=== PATIENT | female | born 1960 | race Caucasian/White ===

== ENCOUNTER 2022-09-13 02:42 | Emergency (ER) | payer OTHER, SELFPAY ==
[2022-09-13 02:55] VITALS: BP 159/97; PULSE 75; RESP 18; TEMP 36.7; O2SAT 99; BMI 29.9
--- NOTE | 2022-09-13 03:05 | ED.GENADULT ---
HPI - General Adult General Time Seen by Provider: 03:05 Date Seen: 09/13/22 Chief complaint: Shoulder Injury/Pain Stated complaint: severe shoulder pain/rt arm is numb Time Seen by Provider: 09/13/22 02:55 Source: patient Mode of arrival: ambulatory Limitations: no limitations History of Present Illness HPI narrative: 62-year-old female who comes in today with right shoulder pain and right arm heaviness. This started yesterday. She has been taking ibuprofen with some improvement but woke up sweaty in with some chest fullness and so decided come the emergency department. Feels better now although still having shoulder pain and the arm feels heavy. No numbness or decreased sensation of the arm, has not noticed any weakness. No heaviness of the leg, no numbness or weakness of the face, no difficulty swallowing. No shortness of breath, no nausea, vomiting, or diarrhea. Related Data Allergies Allergy/AdvReac Type Severity Reaction Status Date / Time No Known Drug Allergies Allergy Verified 09/13/22 02:57 Review of Systems Status of ROS: Reports: 10 or more systems reviewed and unremarkable except as noted in History and below [facility] Medical History (Updated 09/13/22 @ 03:55 by Chad Mitchell RN) No significant past medical history Surgical History (Updated 09/13/22 @ 03:55 by Chad Mitchell RN) No significant past surgical history Social History Smoking Status: Never smoker Second hand tobacco smoke exposure: No How often do you have a drink containing alcohol: never How often do you have six or more drinks on one occasion: Never AUDIT-C Alcohol total score: 0 Non-prescribed substance use: denies use Exam Narrative: Exam Narrative: General: Well-developed and well-nourished, no acute distress Head: Atraumatic and normocephalic Eyes: Pupils are equal reactive, extraocular motions intact, conjunctiva clear ENT: External nose and ears are normal, posterior pharynx without erythema or exudate Neck: No midline cervical tenderness, full spontaneous range of motion the neck, trachea midline, no adenopathy Heart: Regular rate and rhythm no murmurs or thrills Lungs: Clear to auscultation bilaterally without wheezes or crackles Abdomen: Soft, nontender, nondistended with active bowel sounds Musculoskeletal: No tenderness, deformity, or edema Neurologic: Awake, alert, and oriented x3, no gross focal neurologic deficits, cranial nerves intact as tested. No weakness, numbness, decreased sensation, nor ataxia of the right arm Psych: Mood and affect are appropriate Skin: No rashes Const: Vital Signs, click to edit/add: Vital Signs - 24 hr 09/13/22 02:55 Temperature 98.0 F Pulse Rate [Right Pulse Oximeter] 75 Respiratory Rate 18 Blood Pressure [Ri ght Upper Arm] 159/97 H Pulse Oximetry 99 Oxygen Delivery Me thod Room Air Course Course Hospital Course: Patient seen examined, prior records are reviewed. Patient presents with right shoulder pain and right arm heaviness going on since yesterday. No neurologic deficits on exam. EKG is reassuring. Labs and CTA are ordered. If this is negative, patient be discharged follow-up with primary care. Reevaluation(s) Reevaluation #1: Patient recheck. Discussed need for IV for CT scan of the neck and head. Patient declines to have this done. We discussed that symptoms could be to intracranial pathology, cervical vascular pathology less likely. She declines and will follow up with regular doctor symptoms persist. We discussed waiting for blood test and then started steroid for likely upper extremity neuropathy. I am concerned that given sensation of heaviness that this could represent intracranial pathology, however given absence of neurologic findings on exam, as well as time since on since that symptoms, patient is not a candidate for thrombolytics or vascular intervention in the event that she does have acute CVA. Time: 03:39 Reevaluation #2: Troponin is negative, remaining labs are reassuring. Patient is stable for discharge with outpatient follow-up. Time: 04:02 Vital Signs Vital signs: Initial Vital Signs Temperature 98.0 F 09/13/22 02:55 Temperature Source Temporal Artery Scan 09/13/22 02:55 Pulse Rate 75 09/13/22 02:55 Respiratory Rate 18 09/13/22 02:55 Blood Pressure 159/97 H 09/13/22 02:55 Blood Pressure Mean 117 09/13/22 02:55 Blood Pressure Position Sitting 09/13/22 02:55 Pulse Oximetry 99 09/13/22 02:55 Oxygen Delivery Method 09/13/22 02:55 Vital Signs Temperature 98.0 F 09/13/22 02:55 Pulse Rate 75 09/13/22 02:55 Respiratory Rate 18 09/13/22 02:55 Blood Pressure 159/97 H 09/13/22 02:55 Pulse Oximetry 99 09/13/22 02:55 Oxygen Delivery Method 09/13/22 02:55 Temperature 98.0 F 09/13/22 02:55 Pulse Rate 75 09/13/22 02:55 Respiratory Rate 18 09/13/22 02:55 Blood Pressure 159/97 H 09/13/22 02:55 Pulse Oximetry 99 09/13/22 02:55 Oxygen Delivery Method 09/13/22 02:55 Medical Decision Making Medical Records Medical records reviewed: Yes I reviewed the patient's medical records Lab Data Lab results reviewed: Yes I reviewed the patient's lab results Labs: Lab Results 09/13/22 09/13/22 Range/Units 03:30 03:30 Sodium 142 (135-149) mmol/L Potassium 3.9 (3.6-5.1) mmol/L Chloride 109 (96-114) mmol/L Carbon Dioxide 29 (20-32) mmol/L BUN 19 (7-30) mg/dL Creatinine 0.7 (0.5-1.5) mg/dL Estimated Creat Clear 55.31 Estimated GFR 98 ml/min Glucose 102 (60-115) mg/dL Calcium 8.9 (8.4-10.6) mg/dL POC Troponin I 0.00 L (0.01-0.04) ng/ml Discharge Plan Discharge Clinical Impression: Acute thoracic myofascial strain, Radiculopathy affecting upper extremity Patient Disposition: Home, Self-Care Condition: Stable Instructions: Cervical Radiculopathy (ED) Additional Instructions: Take Tylenol and ibuprofen as needed for pain. Take prednisone as prescribed. Follow-up with your regular doctor this week or next week Activity Level: Activity as Tolerated Discharge Diet: Regular Follow Up/Referrals: Sedrick Evans MD [Primary Care Provider] - Stand Alone Forms: [facility] Info Instructions
--- OUTSIDE RECORDS SUMMARY | 2022-09-13 03:26 | XMS_ITS | Clinical Summary ---
:1960 Author Organization [facility] [facility] Address [place] [address] Care Team Providers Name Role Phone Sedrick Evans MD Primary Care Provider [phone] Cyndi Neal Unavailable Unavailable Allergies Active Allergy Reactions Severity Noted Date Comments Amoxicillin Hives 07/17/2008 Citalopram Other - Describe In 08/10/2007 fatigue Comment Field Venlafaxine Analogues Other - Describe In 08/10/2007 bad dreams Comment Field Atorvastatin Other - Describe In 04/07/2015 muscle a ches Comment Field Oyster Shell Other - Describe In 04/22/2016 Per karoline rgy test 30 Comment Field years ago Pravastatin Other - Describe In 04/07/2015 Muscle a ches Comment Field Sulfamethoxazole-Trimeth Rash 08/05/2010 oprim Bupropion Nausea Only 08/10/2007 Medications Medication Sig Dispensed Refills Start Date End Date Status loratadine (CLARITIN) 10 Take 1 tablet 0 04/13/2016 Active mg tablet by mouth once daily. aspirin (ECOTRIN) 81 mg Take 1 tablet 0 04/21/2016 Active enteric coated by mouth once tabletIndications: Left daily with a chest pressure meal. Start enteric coated aspirin 81 mg daily with food per Dr. Evans. docusate (COLACE) 100 mg Take 1-2 0 12/06/2017 Active capsuleIndications: capsules by Hemorrhoids, internal mouth 2 times daily if needed for Constipation. coenzyme q10 (Co Q-10) 100 Take 2 0 06/03/2021 Active mg capIndications: Pure Capsules (200 hypercholesterolemia mg) by mouth once daily. pravastatin (PRAVACHOL) 10 Take 1 Tablet 90 Tablet 3 2 Active mg tabletIndications: Pure (10 mg) by hypercholesterolemia mouth at bedtime. lisinopriL (PRINIVIL; Take 1 Tablet 90 Tablet 3 06/06/2022 Active ZESTRIL) 5 mg (5 mg) by tabletIndications: mouth once Essential hypertension daily. omeprazole 20 mg Take 1 Tablet 90 Tablet 3 06/06/2022 Active tabletIndications: (20 mg) by Gastroesophageal reflux mouth once disease with esophagitis daily before a without hemorrhage, meal. Eosinophilic esophagitis calcium carbonate (Tums) Chew 1 Tablet 0 06/06/2022 Active 200 mg calcium (500 mg) (500 mg) by chewable mouth every 24 tabletIndications: At risk hours. for osteoporosis cholecalciferol (Vitamin Take 1 Capsule 0 06/06/2022 Active D) 1,000 unit (1,000 units) capsuleIndications: At by mouth once risk for osteoporosis daily. Active Problems Problem Noted Date Eosinophilic esophagitis 05/18/2018 Overview: EGD 04/2018 EoE, try omeparole Routine adult health maintenance 04/10/2015 Overview: Colonoscopy 03/2015 diverticulosis repeat in 10 years Hematuria 06/19/2007 Overview: benign hematuria Gastroesophageal reflux disease with esophagitis 06/19 Mild dysplasia of cervix 06/19/2007 Overview: mild dysplasia on colposcopy 1998 Pure hypercholesterolemia 06/19/2007 Allergic rhinitis, cause unspecified 06/19/2007 Mild episode of recurrent major depressive disorder Overview: Dx 2000 Degeneration of lumbar or lumbosacral intervertebral d isc 06/19/2007 Overview: L4-5 Unspecified essential hypertension 06/19/2007 Abnormal cardiovascular stress test Resolved Problems Problem Noted Date Resolved Date Dysthymia 08/13/2009 05/01/2018 ALLERGIC RHINITIS CAUSE UNSPECIFIED 07/17/200807/24 Encounters Date Type Specialty Care Team Description 09/13/2022 Travel 09/13/2022 Nurse Triage Sedrick Evans MD Nu mbness from Last 3 Months Immunizations Name Administration Dates Next Due COVID-19 vaccine ([employer] 06/06/2022 30mcg/0.3mL) 12YO+ SUDHA-SUCROSE PF, MDV COVID-19 vaccine ([facility] [employer] 09/23/2021, 02/02/2021, 30mcg/0.3mL) PF, MDV Hepatitis B (Adult) 06/21/2017, 01/25/2017, 07/04/2016, 06/06/2016 Influenza A (H1N1), Inactivated (Age 1210/12/2009 >=3 Years) Influenza Intradermal PF 18-64 yrs 07/25/2016 Influenza, IIV3 (Age 6-35 mos) 07/01/2009 Influenza, IIV3 (Age >=3 years) 06/21/2011, 08/05/2010, 07/23 Influenza, IIV4 08/06/2021, 07/09/2020, 08/09/2017 Td (Age >=7 Years) 05/21/1996 Tdap 01/25/2017, 06/19/2007 Zoster (Shingrix-RZV, recombinant) 08/14/2019, 05/06/2019 Social History Tobacco Use Types Packs/Day Years Used Date Never Smoker Smokeless Tobacco: Never Used Tobacco Cessation: Counseling Given: Yes Alcohol Use Standard Drinks/Week Comments Yes 1 (1 standard drink = 0.6 oz pure alcoho l) Once a Month Alcohol Habits Answer Date Recorded How often do you have a drink containing alcohol? Not asked How many drinks containing alcohol do you have on a Not aske d typical day when you are drinking? How often do you have six or more drinks on one occasion? No t asked Comment: Once a Month 04/22/2016 Sex Assigned at Date Recorded Not on file COVID-19 Exposure Response Date Recorded In the last 10 days, have you been in contact with No / Unsu re 09/13/2022 2:12 AM [facility] someone who was confirmed or suspected to have Coronavirus/COVID-19? Obstetrics History Para Term AB IAB SAB Ectopic Multiple Living Live Births 3 2 2 0 1 0 1 0 0 2 Date Outcome GA Total Labor/2nd/3rd Weight Sex Delivery Anes PTL Val A 1 A5 Name Clin Labor SAB Term Term Comments x2 Last Filed Vital Signs Vital Sign Reading Time Taken Comments Blood Pressure 109/73 06/06/2022 8:27 AM CDT Pulse 57 06/06/2022 8:27 AM CDT Temperature 37 ??C (98.6 ??F) 05/11/2020 8:10 AM CDT Respiratory Rate - - Oxygen Saturation 100% 06/06/2022 8:27 AM CDT Inhaled Oxygen Concentration - - Weight 84.4 kg (186 lb) 06/06/2022 8:27 AM CDT Height 167 cm (5' 5.75) 06/06/2022 8:27 AM CDT Body Mass Index 30.25 06/06/2022 8:27 AM CDT Plan of Treatment Health Maintenance Due Date Last Done Comments HIV for age 15-65 1976 Influenza for age 50-64 06/23/2022 08/06/2021, 07/09/2020, 08/09/2017, Additional history exists COVID-19 vaccine series (5 - 08/01/2022 06/06/2022, 021, Booster for Pfizer series) 02/02/2021, Additiona l history exists BMI (ht and wt on same day) for 06/06/2023 06/06/2022, 04/23, age 18+ 10/21/2019, Additional history exists Depression screening for age 12+ 06/06/2023 06/06/2022, , 06/03/2021, Additional history exists Mammogram for age 45-75 06/06/2023 06/06/2022, 06/03/2021, 05/06/2019, Additional history exists Colonoscopy through age 75 04/10/2025 04/10/2015 Pap test for age 21-65 06/03/2026 06/03/2021, 06/03/2021, 04/21/2016, Additional history exists Tetanus booster 01/25/2027 01/25/2017, 06/19/2007, 05/21/1996 Lipids for age 45-75 06/06/2027 06/06/2022, 06/03/2021, 05/11/2020, Additional history exists Hepatitis C screening for age Completed 01/23/2014 18-79 Tdap Completed 01/25/2017, 06/19/2007 Zoster (shingles) series for age Completed 08/14/2019, 50+ Results Not on filefrom Last 3 Months Insurance Payer Benefit Plan / Subscriber ID Effective Dates Phone Addre ss Type Group MEDICA MEDICA CHOICE [id number] 2021-[place] [address] [id number] [place] [address] Advance Directives Latest Code Status on File Code Status Date Activated Date Inactivated Comments Full Code 04/22/2016 10:15 AM 04/22/2016 7:35 PM Care Teams Casting Agent Relationship Specialty Start Date End Date Sedrick Evans MD PCP - General 03/24/06 [address] [place] [address] Cyndi Neal [employer] Obstetrics and Gynecology 10/19/11
[2022-09-13 03:46] LABS: Chloride* 109 mmol/L (96-114); Potassium* 3.9 mmol/L (3.6-5.1); Sodium* 142 mmol/L (135-149)
[2022-09-13 03:49] LABS: Carbon Dioxide* 29 mmol/L (20-32); Creatinine* 0.7 mg/dL (0.5-1.5); Est. Creatinine Clearance* 55.31; Estimated Glomerular Filt Rate 98 ml/min
[2022-09-13 03:50] LABS: Blood Urea Nitrogen* 19 mg/dL (7-30); Calcium* 8.9 mg/dL (8.4-10.6); Glucose* 102 mg/dL (60-115)
[2022-09-13 04:07] VITALS: BP 159/97; PULSE 75; RESP 18; TEMP 36.7
[2022-09-13 04:20] VITALS: BP 145/87; PULSE 79; RESP 18; TEMP 36.6; O2SAT 99
== END 2022-09-13 04:07 | disposition home or self-care (01) ==
PROVIDERS: Emergency Provider Family Medicine; PCP Family Medicine
DX: S29.012A Strain of muscle and tendon of back wall of thorax, initial encounter (principal); X58.XXXA Exposure to other specified factors, initial encounter; Y93.9 Activity, unspecified; Y92.9 Unspecified place or not applicable; Y99.9 Unspecified external cause status; M54.14 Radiculopathy, thoracic region
CPT/HCPCS: 36415; 80048; 93005; 99283; 99284

== ENCOUNTER 2023-06-14 07:30 | Outpatient (RCR) | payer OTHER, SELFPAY | END 2023-06-14 11:10 | disposition home or self-care (01) | PROVIDERS: PCP Family Medicine; Visit Provider Family Medicine | DX: M77.11 Lateral epicondylitis, right elbow (principal); M25.521 Pain in right elbow; Z51.89 Encounter for other specified aftercare | CPT/HCPCS: 97035; 97110; 97140; 97165; X5282 ==

== ENCOUNTER 2025-09-22 21:33 | Emergency (ER) | payer BC, SELFPAY ==
--- OUTSIDE RECORDS SUMMARY | 2025-09-22 21:36 | XMS_ITS | Clinical Summary ---
Author Organization [facility] Address [address] [place] [address] Care Team Providers Care Banquet Steward Name Role Phone Kelly Reeves Primary Care Provider [phone] Allergies Active Allergy Reactions Criticality Noted Date Comments Amoxicillin Hives 07/17/2008 Citalopram Other - Describe In Comment Field 08/10/2007 fatigue Venlafaxine Analogues Other - Describe I n Comment Field 08/10/2007 bad dreams Oyster Shell Other - Describe In Comment Field 04/22/2016 Per allergy test 30 years ago Sulfamethoxazole-Trimet hoprim Rash 08/05/2010 Bupropion Nausea Only 08/10/2007 Medications docusate (COLACE) 100 mg capsuleIndications:Hemo rrhoids, internal Take 1-2 capsules by mouth 2 times daily if needed for Constipation . 0 12/06/19 18 Active coenzyme q10 (Co Q-10) 100 mg capIndications:Pure hypercholesterolemia Take 2 Capsules (200 mg) by mouth once daily. 0 06/03/20 21 Active cetirizine (ZYRTEC) 10 mg tablet Take 1 Tablet (10 mg) by mouth once daily. 0 04/10/20 23 Active polyethylene glycol-electrolyte (GOLYTELY) 236-22.74-6.74 -5.86 gram suspensionIndications:E ncounter for screening colonoscopy Drink 2 liters (half the bottle) the day before the procedure and 2 liters (half the bottle) 6 hours prior to procedure. 4000 mL 07/23/20 25 Active metFORMIN (GLUCOPHAGE XR) 500 mg Extended-Release tabletIndications:Predi abetes Take 1 tablet once daily with a meal for 1 week, then increase to 2 tablets once daily. 180 Tablet 3 08/05/20 25 Active lisinopriL (PRINIVIL; ZESTRIL) 5 mg tabletIndications:Essen tial hypertension Take 1 Tablet (5 mg) by mouth once daily. 90 Tablet 3 08/05/20 25 Active omeprazole 20 mg tabletIndications:Eosin ophilic esophagitis,Gastroesoph ageal reflux disease with esophagitis without hemorrhage Take 1 Tablet (20 mg) by mouth once daily before a meal. 90 Tablet 3 08/05/20 25 Active pravastatin (PRAVACHOL) 10 mg tabletIndications:Pure hypercholesterolemia Take 1 Tablet (10 mg) by mouth at bedtime. 90 Tablet 3 08/05/20 25 Active Active Problems Problem Noted Date Diagnosed Date Prediabetes 06/17/2023 Eosinophilic esophagitis 05/18/2018 Overview (05/18/2018): EGD 04/2018 EoE, try omeparole Gastroesophageal reflux disease with esophagitis 06/19/2007 Mild dysplasia of cervix 06/19/2007 Overview (06/19/2007): mild dysplasia on colposcopy 1998 Pure hypercholesterolemia 06/19/2007 Allergic rhinitis, cause unspecified 06/19/2007 Mild episode of recurrent major depressive disor garret 06/19/2007 Overview (06/19/2007): Dx 2000 Degeneration of lumbar or lumbosacral interverte bral disc 06/19/2007 Overview (06/19/2007): L4-5 Unspecified essential hypertension 06/19/2007 Resolved Problems Problem Noted Date Diagnosed Date Resolved Date Routine adult health maintenance 04/10/2015 06/17/2023 Overview (04/10/2015): Colonoscopy 03/2015 diverticulosis repeat in 10 years Dysthymia 08/13/2009 05/01/2018 ALLERGIC RHINITIS CAUSE UNSPECIFIED 07/17/2008 08/13/2009 Hematuria 06/19/2007 06/17/2023 Overview (06/19/2007): benign hematuria Abnormal cardiovascular stress test 06/17/2023 Encounters Date Type Department Care Team Description 08/13/2025 Orders Only [facility] [address] [place] [address] Kelly Reeves PA 1 scan: (1-Ord) [facility] 08/12/2025 10:03 AM CDT - 08/12/2025 11:59 PM CDT Hospital Encounter Jose Florez MD 08/12/2025 Orders Only [facility] [address] [facility] [address] [place] [address] Jose Florez MD <No scans attached> 08/12/2025 Surgery [facility] [address] [facility] [address] [place] [address] Jose Florez MD Colonoscopy 08/05/2025 8:40 AM CDT Ancillary Procedure [facility] [address] [place] [address] 08/05/2025 7:30 AM CDT Office Visit [address] [address] Kelly Reeves PA Physical (Annual exam no pap); Preoperative Exam (Colonoscopy- 5-Dr. Florez[facility]) 08/05/[address] [address] Jose Florez MD Appointment Reminder (Colonoscopy on 08/12/2025 at [facility]) 08/04/2025 Travel 07/10/[address] [address] Jose Florez MD Screening 07/08/2025 Telephone [facility] [address] [place] [address] Kelly Reeves PA Referral (colonoscopy) from Last 3 Months Immunizations Immunization Administration Dates Next Due COVID-19 vaccine ([employer] NTech 30mcg/0.3mL) 12YO+ SUDHA-SUCROSE PF, MDV 06/06/2022 COVID-19 vaccine ([employer] NTech 30mcg/0.3mL) PF, MDV 09/23/2021,02/02/2021,01/12/2021 Hepatitis B (Adult) 06/21/2017, 7,07/04/2016,2015 INFLUENZA, IIV3 PF (AGE >= 6 MO) 08/05/2025,07/23 Influenza A (H1N1), Inactiva felix (Age >=3 Years) 10/12/2009 Influenza Intradermal PF 18-64 yrs 07/25/2016 Influenza, IIV3 (Age 6-35 mos) 07/01/2009 Influenza, IIV3 (Age >=3 years) 06/21/2011,08/05,08/08/2006 Influenza, IIV4 08/03/2023,,08/06/2021,2019,07/23/2019,08/09/2017 Influenza, IIV4 (=>6mos) MDV 07/16/2018 Td (Age >=7 Years) 05/21/1996 Tdap 01/25/2017,06/19/2007 Zoster (Shingrix-RZV, recombinant) 08/14/2019, Family History * Patient is adopted Medical History Relation Name Comments Heart Disease Father Schizophrenia Mother Relation Name Status Comments Father Mother Social History Tobacco Use Types Packs/Day Years Used Date Smoking Tobacco: Never Smokeless Tobacco: Never Tobacco Cessation:Counseling Given: Yes Alcohol Use Standard Drinks/Week Comments Yes 1 (1 standard drink = 0.6 oz pur e alcohol) Once a Month PHQ-2 Answer Date Recorded PHQ-2 TOTAL SCORE 0 08/05/2025 Social Connections Answer Date Recorded Do you often feel lonely or isolated from those around you? 0 08/05/2025 Financial Resource Strain Answer Date R ecorded Difficulty of Paying Living Expenses 3 08/05/2025 Difficulty of Paying Living Expenses Not on file 08/05/2025 Food Insecurity Answer Date Recorded Do you worry your food will run out before you are able to buy more? 1 08/05/2025 Transportation Needs Answer Date Record ed Does lack of transportation keep you from medica l appointments? 1 08/05/2025 Does lack of transportation keep you from work, meetings or getting things that you need? 1 08/05/2025 Housing Stability Answer Date Recorded What is your housing situation today? 1 08/05/2025 Utilities Answer Date Recorded Do you have trouble paying f or utilities (for example, heat, electricity, water, phone)? 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 Not on file Not on file Not on file Obstetrics History Para Term AB IAB SAB Ectopic Multiple Livin g Live Births 3 2 2 0 1 0 1 0 0 2 Date Outcome GA Total Labor Labor/2nd/3rd Weight Sex Type Anes PTL Val A1 A5 Name Clin SAB Term Term Comments x2 Last Filed Vital Signs Vital Sign Reading Time Taken Comments Blood Pressure 116/80 08/05/2025 7:36 AM CDT Pulse 67 08/05/2025 7:36 AM CDT Temperature 36.8 C (98.2 F) 11/20/2023 7:25 AM INSULATOR TESTER Respiratory Rate 16 08/01/2024 8:12 AM CDT Oxygen Saturation 100% 08/05/2025 7:36 AM CDT Inhaled Oxygen Concentration - - Weight 83 kg (183 lb) 08/05/2025 7:36 AM CDT Height 167 cm (5' 5.75) 08/05/2025 7:36 AM CDT Body Mass Index 29.76 08/05/2025 7:36 AM CDT Plan of Treatment Health Maintenance Due Date Last Done Comments Pneumococcal series for age 50+ (1 of 1 - PCV) 2011 RSV vaccine for adults or (1 - Risk 50-74 years 1-dose series) 2011 COVID-19 vaccine series (2024- season) 2025 06/06/2022, 09/23/2021, 02/02/2021, Additional history exists BMI (ht and wt on same day) for age 18+ 08/05/2026 08/05/2025, 08/01/2024, 06/15/2023, Additional history exists Depression screening for age 12+ 08/05/2026 08/05/2025, 08/01/2024, 06/15/2023, Additional history exists Mammogram for age 45-75 08/05/2026 08/05/20, 06/20/2024, 06/15/2023, Additional history exists Tetanus booster 01/25/2027 01/25/2017, 05/24, 05/21/1996 Pap test for age 21-65 08/05/2028 , 08/05/2025, 06/03/2021, Additional history exists Lipids for age 45-75 08/05/2030 08/05/2025, 08/01/2024, 06/15/2023, Additional history exists Colonoscopy through age 75 08/12/203508/12, 08/12/2025, 04/10/2015 Hepatitis C screening for ag e 18-79 Completed 01/23/2014 Hepatitis B series for 19+ Completed 06/21, 01/25/2017, 07/04/2016, Additional history exists Zoster (shingles) series for age 50+ Completed 08/14/2019, 05/06/2019 HIV for age 15-65 Completed 06/15/2023 Influenza Vaccine Completed 08/05/2025, , 08/03/2023, Additional history exists Procedures Procedure Name Priority Date/Time Associated Diagnosis Comments COLONOSCOPY SCREENING Routine 08/12/2025 12:00 AM CDT Screening for malignant neoplasm of colon XR MAMMO SHARONA BILAT SCREEN Routine 08/05/2025 8:47 AM CDT Visit for screening mammogram HEMOGLOBIN A1C Routine 08/05/2025 8:24 AM CDT Prediabetes COMP METABOLIC PANEL Routine 08/05/2025 8:24 AM CDT Essential hypertension LIPID PANEL W REFLEX MEASURED LDL Routine 08/05/2025 8:24 AM CDT Pure hypercholesterolemia ROAD DESIGN DRAFTSPERSON THIN PREP PAP SCREEN IMAGED Routine 08/05/2025 8:10 AM CDT Screening for malignant neoplasm of cervix HPV HIGH RISK Routine 08/05/2025 8:10 AM CDT Screening for malignant neoplasm of cervix LC HIV-1/O/2, 4TH GENERATION Routine 06/15/2023 8:00 AM CDT Screening for HIV (human immunodeficiency virus) ANTI HCV Routine 01/23/2014 9:56 AM CDT Need for hepatitis C screening test SURGICAL PROCEDURE (TYPE PROCEDURE DESCRIPTION BELOW) Encounter for screening colonoscopy from Last 3 Months or Most Recently Relevant to Health Maintenance Results * COLONOSCOPY SCREENING (08/12/2025 12:00 AM CDT) us Kelly ANSARI GI PROCEDURE ORD Final Res ult * XR MAMMO SHARONA BILAT SCREEN (08/05/2025 8:47 AM CDT) Anatomical Region Laterality Modality BREASTS, Breast Left, Breast Right Bilateral Mammography Impressions 08/06/2025 6:19 PM CDT There is no radiographic evidence for malignancy. Recommend annual mammograms. MAMMOGRAM ASSESSMENT: ACR 1 Negative PATIENTS: You will also receive a letter with your examination results in an easy to read format. If you have questions about your results, please contact your referring provider. Narrative 08/06/2025 6:19 PM CDT For Patients: As a result of the 21st Century Cures Act, medical imaging exams and procedure reports are released immediately into your electronic medical record. You may view this report before your referring provider. If you have questions, please contact your health care provider. XR MAMMO SHARONA BILAT SCREEN [[id number]] CLINICAL HISTORY: This is an asymptomatic 65 y.o. patient. INDICATION FOR EXAM: Mammogram Screening. TECHNIQUE: CC and MLO views were obtained. This study was evaluated with the assistance of Computer-Aided Detection. Breast Tomosynthesis was used in interpretation. COMPARISON FILM: Yes 06/20/24 [facility] 06/15/23 [facility] FINDINGS: There are scattered areas of fibroglandular density. There are no dominant masses, suspicious micro calcifications or areas of architectural distortion. Kelly ANSARI MAMMO Final Resu lt * HEMOGLOBIN A1C (08/05/2025 8:24 AM CDT) HEMOGLOBIN A1C 5.5 <5.7 % 08/06/2025 4:26 AM CDT [facility] Comment: For the purpose of screening for the presence of diabetes: <5.7% Consistent with the absence of diabetes 5.7-6.4% Consistent with increased risk for diabetes (prediabetes) > or =6.5% Consistent with diabetes This assay result is consistent with a decreased risk of diabetes. Currently, no consensus exists regarding use of hemoglobin A1c for diagnosis of diabetes in children. According to [place] Diabetes Association (ADA) guidelines, hemoglobin A1c <7.0% represents optimal control in non- diabetic patients. Different metrics may apply to specific patient populations. Standards of Medical Care in Diabetes(ADA). Blood BLOOD SPECIMEN / Unknown [facility] / Unknown 08/05/2025 8:24 AM CDT 08/05/2025 8:24 AM CDT Narrative [facility] - 08/06/2025 4:26 AM CDT FASTING:YES FASTING: YES Kelly ANSARI CHEMISTRY Final Resu lt [facility] [address] [address] [address], * (ABNORMAL) LIPID PANEL W REFLEX MEASURED LDL (08/05/2025 8:24 AM CDT) CHOLESTEROL, TOTAL 207(H) <200 mg/dL 08/06/2025 4:26 AM CDT [facility] TRIGLYCERIDES 130 <150 mg/dL 08/06/2025 4:26 AM CDT [facility] HDL CHOLESTEROL 57 > OR = 50 mg/dL 08/06/2025 4:26 AM CDT [facility] NON HDL CHOLESTEROL 150(H) <130 mg/dL (calc) 08/06/2025 4:26 AM CDT [facility] Comment: For patients with diabetes plus 1 major ASCVD risk factor, treating to a non-HDL-C goal of <100 mg/dL (LDL-C of <70 mg/dL) is considered a therapeutic option. CHOL/HDLC RATIO 3.6 <5.0 (calc) 08/06/2025 4:26 AM CDT [facility] LDL-CHOLESTEROL 125(H) mg/dL (calc) 08/06/2025 4:26 AM CDT [facility] Comment: Reference range: <100 Desirable range <100 mg/dL for primary prevention; <70 mg/dL for patients with CHD or diabetic patients with > or = 2 CHD risk factors. LDL-C is now calculated using the Linda calculation, which is a validated novel method providing better accuracy than the Friedewald equation in the estimation of LDL-C. Jose ROMO et al. HALLEY. 2013;310(19): 9928-3346 (http://education.Invision Heart.Watsin/faq/WBA850) Blood BLOOD SPECIMEN / Unknown [facility] / Unknown 08/05/2025 8:24 AM CDT 08/05/2025 8:24 AM CDT Narrative [facility] - 08/06/2025 4:26 AM CDT FASTING:YES FASTING: YES us Kelly ANSARI CHEMISTRY Final Resu lt [facility] [address] [address] [address], * (ABNORMAL) COMP METABOLIC PANEL (08/05/2025 8:24 AM CDT) SODIUM 142 135 - 146 mmol/L 08/06/2025 4:26 AM CDT [facility] POTASSIUM 3.8 3.5 - 5.3 mmol/L 08/06/2025 4:26 AM CDT [facility] CHLORIDE 108 98 - 110 mmol/L 08/06/2025 4:26 AM CDT [facility] CARBON DIOXIDE 27 20 - 32 mmol/L 08/06/2025 4:26 AM CDT [facility] GLUCOSE 106(H) 65 - 99 mg/dL 08/06/2025 4:26 AM CDT [facility] Comment: Fasting reference interval For someone without known diabetes, a glucose value between 100 and 125 mg/dL is consistent with prediabetes and should be confirmed with a follow-up test. CALCIUM 9.5 8.6 - 10.4 mg/dL 08/06/2025 4:26 AM CDT [facility] CREATININE 0.85 0.50 - 1.05 mg/dL 08/06/2025 4:26 AM CDT [facility] BUN/CREATININE RATIO SEE NOTE: 6 - 22 (calc) 08/06/2025 4:26 AM CDT [facility] Comment: Not Reported: BUN and Creatinine are within reference range. EGFR 76 > OR = 60 mL/min/1. 73m2 08/06/2025 4:26 AM CDT [facility] ALBUMIN 4.2 3.6 - 5.1 g/dL 08/06/2025 4:26 AM CDT [facility] PROTEIN, TOTAL 6.5 6.1 - 8.1 g/dL 08/06/2025 4:26 AM CDT [facility] BILIRUBIN, TOTAL 1.2 0.2 - 1.2 mg/dL 08/06/2025 4:26 AM CDT [facility] ALKALINE PHOSPHATASE 60 37 - 153 U/L 08/06/2025 4:26 AM CDT [facility] ALT 13 6 - 29 U/L 08/06/2025 4:26 AM CDT [facility] AST 16 10 - 35 U/L 08/06/2025 4:26 AM CDT [facility] UREA NITROGEN (BUN) 16 7 - 25 mg/dL 08/06/2025 4:26 AM CDT [facility] GLOBULIN 2.3 1.9 - 3.7 g/dL (calc) 08/06/2025 4:26 AM CDT [facility] ALBUMIN/GLOBULI N RATIO 1.8 1.0 - 2.5 (calc) 08/06/2025 4:26 AM CDT [facility] Blood BLOOD SPECIMEN / Unknown [facility] / Unknown 08/05/2025 8:24 AM CDT 08/05/2025 8:24 AM CDT Narrative [facility] - 08/06/2025 4:26 AM CDT FASTING:YES FASTING: YES us Kelly ANSARI CHEMISTRY Final Resu lt [facility] [id number] [place] [address], [place] [phone] * ROAD DESIGN DRAFTSPERSON THIN PREP PAP SCREEN IMAGED (08/05/2025 8:10 AM CDT) Case Report Gynecologic Cytology Report Case: [id number] Authorizing Provider: Kelly Reeves PA Collected: 08/05/2025 0810 Ordering Location: [facility] Received: 08/05/2025 0917 Clinic First Screen: Kiersten Blair Specimen: ROAD DESIGN DRAFTSPERSON ThinPrep Vial Screening, Cervical 08/12/2025 10:36 AM CDT [facility] INTERPRETATION/ RESULT NEGATIVE FOR INTRAEPITHELIAL LESION OR MALIGNANCY (NIL) (none) 08/12/2025 10:36 AM CDT [facility] at 1036 CDT SPECIMEN ADEQUACY Satisfactory for evaluation No endocervical component seen 08/12/2025 10:36 AM CDT [facility] HPV REQUEST HPV and PAP 08/12/2025 10:36 AM CDT [facility] Date of LMP 201108/12/2025 10:36 AM CDT [facility] Last Pap Date 06/03/2021 08/12/2025 10:36 AM CDT [facility] Last Pap Result NIL 10:36 AM CDT [facility] Abnormal Pap or [place] Bx in last 5 years No 08/12/2025 10:36 AM CDT [facility] Menstrual Status Postmenopausal 08/12/2025 10:36 AM CDT [facility] [place] Bx Done Today No 08/12/2025 10:36 AM CDT [facility] Additional Information None given 08/12/2025 10:36 AM CDT [facility] Comment: Cytology is screened at [facility] - [address], [place] [address] and [facility] - [address], [place] [address] and [facility] - [address] [place] [address] Interpreted at [facility] - [address], [place] [address] Automated Review Successful 08/12/2025 10:36 AM CDT [facility] Comment:Specimen processed s uccessfully by automated crystal report developer device, ThinPrep Imaging System, [employer] ANCILLARY TESTING ROAD DESIGN DRAFTSPERSON HPV Ordered, Please see separate report 08/12/2025 10:36 AM CDT [facility] Note The pap test is a screening technique, not a diagnostic procedure. It is used primarily to screen for squamous cancers and precursor lesions. Published studies have shown that it is subject to both false negative and false positive results. The pap test should not be used as the sole means to diagnose or exclude pre-malignant and malignant lesions. 08/12/2025 10:36 AM CDT [facility] Other (Cervical) Non-Blood / Unknown 08/05/2025 8:10 AM CDT 08/05/2025 9:17 AM CDT us Kelly ANSARI PATHOLOGY/CYTOLOGY Final R esult [facility] [address] [place] [address], * HPV HIGH RISK (08/05/2025 8:10 AM CDT) TYPE 16 Negative Negative 08/07/2025 5:03 PM CDT [facility] TYPE 18 Negative Negative 08/07/2025 5:03 PM CDT [facility] OTHER HIGH RISK TYPES Negative Negative 08/07/2025 5:03 PM CDT [facility] Other (Cervical) Non-Blood / Unknown 08/05/2025 8:10 AM CDT 08/05/2025 4:35 PM CDT Narrative [facility] - 08/07/2025 5:03 PM CDT HPV types 16, 18, 31, 33, 35, 39, 45, 51, 52, 56, 58, 59, 66 and 68 DNA were undetectable or below the pre-set threshold. Methodology: Dimitri Taylor 4800 HPV Test Kelly ANSARI MICROBIOLOGY Final Resu lt [facility] [address] [place] [address], [place] * LC HIV-1/O/2, 4TH GENERATION (06/15/2023 8:00 AM CDT) [facility] HIV Scr 4th Gen Non Reactive Non Reactive 06/18/2023 8:36 AM CDT [facility] ([facility]) Comment: HIV Negative HIV-1/HIV-2 antibodies and HIV-1 p24 antigen were NOT detected. There is no laboratory evidence of HIV infection. Blood BLOOD SPECIMEN / Unknown Venipuncture / Unknown 06/15/2023 8:00 AM CDT 06/15/2023 8:[address] [facility] ([facility]) - 06/18/2023 8:36 AM CDT Performed at: [address] [place] [id number] Ditch Tender: Mikel Moreira MD, Phone: [phone] Kelly ANSARI LABORATORY Final Resu lt [facility] ([facility]) [address] [place] [address], [place] * ANTI HCV [[id number]] (01/23/2014 9:56 AM CDT) Pathologist [facility] ANTI HCV Non-reacti ve [facility] Blood specimen (specimen) BLOOD SPECIMEN / Unknown 01/23/2014 9:56 AM CDT 01/23/2014 9:50 AM CDT us Sedrick Evans MD SEND OUTS Final Re sult [facility] INTERNAL ZIP [address] [place] [address] from Last 3 Months or Most Recently Relevant to Health Maintenance Insurance [facility] Advance Directives * Full Code (Latest Code Status on File) Date Activated Date Inactivated Comments 04/22/2016 10:15 AM 04/22/2016 7:35 PM Care Teams Banquet Steward Relationship Specialty Start Date End Date Kelly [place] [address] [address] [place] [address] PCP - General Physician Statistical Engineer 10/25/24
[2025-09-22 21:41] VITALS: BP 156/98; PULSE 95; RESP 18; TEMP 36.7; O2SAT 99; BMI 29.1
--- NOTE | 2025-09-22 21:53 | ED.GENADULT ---
HPI - General Adult General Chief complaint: Shortness of Breath/Dyspnea Stated complaint: trouble breathing Time Seen by Provider: 09/22/25 21:41 Source: patient Mode of arrival: ambulatory Limitations: no limitations History of Present Illness HPI narrative: 65-year-old female presenting today with sensation that there is something stuck in her throat. Patient states that 30 minutes after eating dinner which consisted of rice and peas, all the sudden she felt something all of the right side of her throat. She states that it is difficult to swallow. She is not drooling. No changes in her voice. She was not eating at the time that she felt this. She is concerned that her throat is going to close and she is not going to wake up in the morning. She states that she waited a few hours before coming in, drink bubbly water with the sensation remains. She is not having any difficulty breathing but states that she is very anxious. Her history significant for hypertension, hyperlipidemia, eosinophilic esophagitis, depression. Related Data Home Medications ?Medication ?Instructions ?Recorded ?Confirmed aspirin 81 mg tablet,delayed 81 mg PO DAILY 09/13/22 09/13/22 release (Ecotrin Low Strength) cholecalciferol (vitamin D3) 25 1,000 unit PO DAILY 09/13/22 09/13/22 mcg (1,000 unit) tablet (Vitamin D3) coenzyme Q10 100 mg capsule (Co 200 mg PO DAILY 09/13/22 09/22/25 Q-10) docusate sodium 100 mg capsule 100 mg PO BID PRN 09/13/22 09/13/22 lisinopril 5 mg tablet 5 mg PO DAILY 09/13/22 09/22/25 loratadine 10 mg tablet (Claritin) 10 mg PO DAILY 09/13/22 09/13/22 omeprazole 20 mg capsule,delayed 20 mg PO DAILY 09/13/22 09/13/22 release pravastatin 10 mg tablet 10 mg PO DAILY 09/13/22 09/22/25 metformin 500 mg tablet,extended mg PO 09/22/25 release 24 hr Allergies Allergy/AdvReac Type Severity Reaction Status Date / Time amoxicillin Allergy Verified 09/22/25 21:44 Sulfa (Sulfonamide Allergy Verified 09/22/25 21:44 Antibiotics) bupropion (From Wellbutrin) AdvReac Verified 09/22/25 21:47 citalopram (From Celexa) AdvReac fatigue Verified 09/22/25 21:47 venlafaxine (From Effexor) AdvReac bad dreams Verified 09/22/25 21:47 oyster shell Allergy Uncoded 09/22/25 21:47 Review of Systems Status of ROS: Reports: 6 or more systems reviewed and unremarkable except as noted in History and below [facility] Medical History Eosinophilic esophagitis ?K20.0 - Eosinophilic esophagitis (ICD-10) Depression ?F32.A - Depression, unspecified (ICD-10) Degeneration of lumbar intervertebral disc ?M51.36 - Other intervertebral disc degeneration, lumbar region (ICD-10) Hematuria ?R31.9 - Hematuria, unspecified (ICD-10) GERD (gastroesophageal reflux disease) ?K21.9 - Gastro-esophageal reflux disease without esophagitis (ICD-10) Hyperlipidemia ?E78.5 - Hyperlipidemia, unspecified (ICD-10) Hypertension ?I10 - Essential (primary) hypertension (ICD-10) Surgical History History of salpingectomy ?Z90.79 - Acquired absence of other genital organ(s) (ICD-10) History of biopsy ?Z98.890 - Other specified postprocedural states (ICD-10) History of section ?Z98.891 - History of uterine scar from previous surgery (ICD-10) History of bunionectomy ?Z98.890 - Other specified postprocedural states (ICD-10) No significant past surgical history Social History Smoking Status: Never smoker Second hand tobacco smoke exposure: No How often do you have a drink containing alcohol: never How often do you have six or more drinks on one occasion: Never AUDIT-C Alcohol total score: 0 Non-prescribed substance use: denies use Exam Narrative: Exam Narrative: Well-nourished well-developed patient, clearly anxious. Alert and oriented. Answers questions appropriately. Mood and affect are appropriate. Thoughts are goal oriented and rational. No tangential or magical thinking noted. Patient speaks in full sentences without needing to catch her breath. She is not drooling and managing her secretions without difficulty. Voice sounds normal. HEENT: Normocephalic atraumatic. Pupils are equally round reactive to light. Extraocular muscles are intact. Conjunctivae are moist without any icterus noted. Moist mucous membranes. Posterior pharynx is normal. Neck is soft without any lymphadenopathy or thyromegaly. No masses are appreciated. There is no tonsillar swelling, lip swelling or tongue swelling visible. Uvula appears normal. No foreign bodies visualized. Const: Vital Signs, click to edit/add: Vital Signs - 24 hr 09/22/25 21:41 Temperature 98.1 F Pulse Rate [Pulse Oximeter] 95 Respiratory Rate 18 Blood Pressure [Ri t Upper Arm] 156/98 H Pulse Oximetry 99 Oxygen Delivery Me thod Room Air Course Vital Signs Vital signs: Initial Vital Signs Temperature 98.1 F 09/22/25 21:41 Temperature Source Temporal Artery Scan 09/22/25 21:41 Pulse Rate 95 09/22/25 21:41 Respiratory Rate 18 09/22/25 21:41 Blood Pressure 156/98 H 09/22/25 21:41 Blood Pressure Mean 117 H 09/22/25 21:41 Pulse Oximetry 99 09/22/25 21:41 Oxygen Delivery Method Room Air 09/22/25 21:41 Vital Signs Temperature 98.1 F 09/22/25 21:41 Pulse Rate 95 09/22/25 21:41 Respiratory Rate 18 09/22/25 21:41 Blood Pressure 156/98 H 09/22/25 21:41 Pulse Oximetry 99 09/22/25 21:41 Oxygen Delivery Method Room Air 09/22/25 21:41 Temperature 98.1 F 09/22/25 21:41 Pulse Rate 95 09/22/25 21:41 Respiratory Rate 18 09/22/25 21:41 Blood Pressure 156/98 H 09/22/25 21:41 Pulse Oximetry 99 09/22/25 21:41 Oxygen Delivery Method Room Air 09/22/25 21:41 Medical Decision Making MDM Narrative Medical decision making narrative: 65-year-old female with a sensation of something stuck on the right side of her throat. We discussed that her throat will not close tonight. We discussed that likely she has a piece arise her pea stuck by her tonsil or in the posterior pharynx somewhere. We discussed that it is safe for her to go to sleep tonight given that she is managing her secretions and breathing without difficulty. If in the morning that sensation remains recommend she return and we can consult with ENT to do a laryngoscopy. Patient was in agreement with this, felt reassured and had no other questions. Discharge Plan Discharge Clinical Impression: Foreign body sensation in throat Patient Disposition: Home, Self-Care Condition: Stable Additional Instructions: If the sensation remains in the morning, return for re-evaluation. Prescriptions: No Action metformin 500 mg tablet extended release 24 hr PO lisinopril 5 mg tablet 5 mg PO DAILY pravastatin 10 mg tablet 10 mg PO DAILY loratadine [Claritin] 10 mg tablet 10 mg PO DAILY omeprazole 20 mg capsule,delayed release(DR/EC) 20 mg PO DAILY docusate sodium 100 mg capsule 100 mg PO BID PRN Patient Comments: 1-2 capsules by mouth 2 times daily if needed for Constipation aspirin [Ecotrin Low Strength] 81 mg tablet,delayed release (DR/EC) 81 mg PO DAILY coenzyme Q10 [Co Q-10] 100 mg capsule 200 mg PO DAILY cholecalciferol (vitamin D3) [Vitamin D3] 25 mcg (1,000 unit) tablet 1,000 unit PO DAILY Follow Up/Referrals: Sedrick Evans MD [Primary Care Provider, Family Practice] Stand Alone Forms: [employer] Info Instructions
== END 2025-09-22 22:28 | disposition home or self-care (01) ==
LOC: ED 22:18
PROVIDERS: Emergency Provider Family Medicine; PCP Physician Assistant
DX: R09.A2 Foreign body sensation, throat (principal)
CPT/HCPCS: 99281; 99283; 99284